=== PATIENT | male | born 1990 | race African-American/Black ===

== ENCOUNTER 2019-09-29 16:30 | Inpatient (IN) ==
[2019-09-29 17:04] LABS: URINE SOURCE CLEAN CATCH
[2019-09-29 17:10] LABS: BILIRUBIN URINE NEGATIVE (NEGATIVE); BLOOD URINE NEGATIVE (NEGATIVE); COLOR YELLOW; GLUCOSE URINE NEGATIVE (NEGATIVE); KETONE URINE NEGATIVE (NEGATIVE); LEUKOCYTES URINE NEGATIVE (NEGATIVE); NITRITE URINE NEGATIVE (NEGATIVE); PH URINE 8.5; PROTEIN URINE TRACE mg/dL (NEGATIVE); SP GRAVITY URINE 1.016; TURBIDITY URINE CLEAR (CLEAR); UROBILINOGEN URINE 3 mg/dL (NORMAL)
[2019-09-29 17:12] LABS: UR EPITHELIAL CELLS <10 /HPF (<10); URINE BACTERIA NEGATIVE /HPF; URINE RBC <10 /HPF (<10); URINE WBC <10 /HPF (<10)
--- NOTE | 2019-09-29 18:14 | Diag Imaging Result Doc PS360 ---
EXAM: KUB ABDOMEN INDICATION: abd pain TECHNIQUE: One view COMPARISON: None. FINDINGS: There are nonspecific bowel gas and stool patterns. There is mild patchy small bowel gas with slight distention. There is no obstructive bowel pattern. There is no evidence of large volume free abdominal gas. There is no evidence of organomegaly. IMPRESSION: Nonspecific abdomen. Electronically signed by Ibrahima Barry 09/29/2019 6:12 PM
[2019-09-29 19:06] LABS: BASO# 0.03 X1000 (0.0-0.2); BASO% 0.3 % (0.0-0.8); EOS# 0.03 X1000 (0.0-0.7); EOS% 0.3 % (0.0-10.0); HEMATOCRIT 43.3 % (42.0-52.0); IMM GRAN# 0.04 X1000 (0.0-0.04); IMM GRAN% 0.4 % (0.0-0.5); LYMPH# 0.52 X1000 (1.2-3.4); LYMPH% 5.3 % (20.5-51.1); MCH 29.3 PG (27-31); MCHC 34.6 g/dL (33-37); MCV 84.6 FL (81-99); MONO# 0.78 X1000 (0.11-0.59); NEUT# 8.37 X1000 (1.4-6.5); NEUT% 85.7 % (42.2-75.2); PLT 144 X1000 (130-400); RBC 5.12 XMIL (4.7-6.1); RDW 12.3 % (11.5-14.5); WBC 9.77 X1000 (4.8-10.8)
[2019-09-29 19:23] LABS: ESTIMATED GFR > 60
[2019-09-29 19:24] LABS: AGAP 16; ALB/GLOB RATIO 1.6; ALBUMIN 4.9 g/dL (3.5-5.0); ALKALINE PHOSPHATASE 53 U/L (32-122); BUN 13 mg/dL (8-22); CALCIUM 9.9 mg/dL (8.8-10.2); CHLORIDE 100 mmol/L (98-107); COSMO 275; CREATININE 1.2 mg/dL (0.7-1.2); GLUCOSE 92 mg/dL (70-104); GOT 17 U/L (10-34); GPT 17 U/L (10-44); LIPASE 6 U/L (13-60); POTASSIUM 4.2 mmol/L (3.5-5.1); SODIUM 138 mmol/L (136-145); TCO2 22 mmol/L (25-35); TOTAL BILIRUBIN 0.42 mg/dL (0.20-1.00)
[2019-09-29] MEDS ORDERED: G.I. COCKTAIL PO ONE (19:30)
--- NOTE | 2019-09-29 19:32 | PROVIDER DOCUMENTATION ---
HPI-Abdominal Pain/GI Problem - General Chief Complaint: Abdominal Pain Stated Complaint: RT SIDE PAIN ,LEG PAIN Time Seen by Provider: 09/29/19 16:41 Source: patient Allergies/Adverse Reactions: Patient Allergies Allergy/AdvReac Type Severity Reaction Status Date / Time No Known Allergies Allergy Verified 09/29/19 19:39 Home Medications: Home Medication List Medication Instructions Recorded Confirmed Last Taken Type NK [No Home Medications] 09/29/19 09/29/19 Unknown History - History of Present Illness-ABD Nature of Presenting Problems: [id number] presents to the ER with c/o epigastric and abd pain, NV, since last night. Abdominal Pain Onset Location: reports: epigastric, generalized abdomen Pain Radiation: reports: no radiation Quality of Pain: reports: aching, burning Severity in ED: reports: moderate Onset/Duration: reports: last night Exposure to sick contacts?: No Associated Symptoms: reports: nausea, vomiting Last BM: last night Dark Stools Present?: reports: none noticed Review of Systems - Adult - REVIEW OF SYSTEMS - ADULT Constitutional: reports: see HPI. denies: chills, fever Eyes: reports: no symptoms reported Ears, Nose, Mouth & Throat: reports: no symptoms reported Cardiovascular: reports: no symptoms reported Respiratory: reports: no symptoms reported. denies: chronic cough, cough, shortness of breath, wheezing Gastrointestinal: reports: see HPI, abdominal pain, nausea, vomiting Genitourinary: reports: no symptoms reported. denies: dysuria, discharge, hesitency, urgency Musculoskeletal: reports: no symptoms reported Integumentary: reports: no symptoms reported Neurological: reports: no symptoms reported Psychiatric: reports: no symptoms reported Endocrine: reports: no symptoms reported Hematologic/Lymphatic: reports: no symptoms reported Allergic/Immunologic: reports: no symptoms reported All Other Systems: Reviewed and Negative Past History - Adult - PAST MEDICAL HISTORY-ADULT Review of Records: reports: Old Records Reviewed, Nursing Assessment Review, Medications Reviewed, Social history reviewed & non-contributory. Major Childhood Illnesses: reports: denies history Cardiovascular: reports: denies history Respiratory: reports: denies history Gastrointestinal: reports: denies history Obstetrical/Gynecological: reports: denies history Genitourinary: reports: denies history Musculoskeletal: reports: denies history Neurological: reports: denies history Endocrine/Immune: reports: denies history Other Conditions: reports: denies history - IMMUNIZATION STATUS Childhood Immunizations: See Nurse Assessment Flu Vaccine: See Nurse Assessment - FAMILY HISTORY Family History: reviewed, not pertinent - SOCIAL HISTORY Smoking: cigarettes, less than 1 pack/day Provider spent 3-5 mins advising pt. on dangers of tobacco.: Discussed manners to quit use, and f/u contacts for add'l counseling. Substance Use: alcohol, marijuana Alcohol Use Frequency: occasionally Living Situation: family Physical Exam-General - PHYSICAL EXAM-ADULT Initial Vital Signs Reviewed: Yes - CONSTITUTIONAL General Appearance: alert, mild distress - EYES Eyes: PERRL/EOMI, pink conjunctivae - HEAD, EARS, NOSE, MOUTH & THROAT HENMT: moist mucous membranes, normal ENT inspection, TMs normal - NECK Neck: full range of motion, supple, normal inspection - RESPIRATORY Respiratory: lungs clear, normal breath sounds - CARDIOVASCULAR Cardiovascular: regular rate, rhythm, tachycardia - GASTROINTESTINAL (ABDOMEN) Abdominal Exam: normal bowel sounds, soft, tenderness (generalized). negative: distended, rebound - MUSCULOSKELETAL Back Exam: normal inspection, no CVA tenderness, no vertebral tenderness Extremity: normal range of motion, non-tender, normal gait - SKIN Integumentary: normal color, warm/dry - NEUROLOGIC Neurologic: grossly normal - PSYCHIATRIC Psych/Mental Status: anxious (patient will not sit still even for exam.) Progress - PLAN OF CARE/RESULTS Progress/Plan/Lab Results: Vital Signs - 8 hr 09/29/19 16:41 09/29/19 17:43 Temperature 98.8 F 97.8 F Pulse Rate 106 H 105 H Respiratory Rate 18 20 Blood Pressure 111/70 109/79 O2 Sat by Pulse Oximetry 100 100 Laboratory Results - last 24 hr 09/29/19 09/29/19 09/29/19 16:54 18:36 18:36 WBC 9.77 RBC 5.12 Hgb 15.0 Hct 43.3 MCV 84.6 MCH 29.3 MCHC 34.6 RDW Std Deviation 12.3 Plt Count 144 MPV 12.0 H Immature Gran % (Auto) 0.4 Neut % (Auto) 85.7 H Lymph % (Auto) 5.3 L Lewis % (Auto) 8.0 Eos % (Auto) 0.3 Baso % (Auto) 0.3 Immature Gran # (Auto) 0.04 Neut # (Auto) 8.37 H Lymph # (Auto) 0.52 L Lewis # (Auto) 0.78 H Eos # (Auto) 0.03 Baso # (Auto) 0.03 Sodium 138 Potassium 4.2 Chloride 100 Carbon Dioxide 22 L Anion Gap 16 BUN 13 Creatinine 1.2 Estimated GFR/1.73 m2 > 60 BUN/Creatinine Ratio 11 Glucose 92 Calculated Osmolality 275 Calcium 9.9 Total Bilirubin 0.42 AST 17 ALT 17 Alkaline Phosphatase 53 Total Protein 8.0 Albumin 4.9 Globulin 3.1 Albumin/Globulin Ratio 1.6 Lipase 6 L Urine Source CLEAN CATCH Urine Color YELLOW Urine Turbidity CLEAR Urine pH 8.5 Ur Specific [place] 1.016 Urine Protein TRACE A Ur Glucose (Stick) NEGATIVE Ur Ketones (Stick) NEGATIVE Urine Blood NEGATIVE Urine Nitrite NEGATIVE Urine Bilirubin NEGATIVE Urobilinogen Dipstick 3 A Urine Leukocytes NEGATIVE Urine WBC (Auto) <10 Urine RBC (Auto) <10 U Epithel Cells (Auto) <10 Urine Bacteria (Auto) NEGATIVE Orders Category Date Time Status NPO Diet 09/29/19 16:[address] ABD/PELVIS W/IV CONT ONLY [CT] Stat Exams 09/29/19 19:31 Ordered KUB ABDOMEN [RAD] Stat Exams 09/29/19 17:55 Completed CBC WITH DIFF [HEME] Stat Lab 09/29/19 18:36 Completed COMPREHENSIVE METABOLIC PANEL [CHEM] Stat Lab 09/29/19 18:36 Completed LIPASE [CHEM] Stat Lab 09/29/19 18:36 Completed URINALYSIS [URINALYSIS] Stat Lab 09/29/19 16:54 Completed URINE DRUG SCREEN PL Stat Lab 09/29/19 19:24 Uncollected Lido/[place] Alk/Al&mg Hydrox [G.i. Cocktail] Med 09/29/19 19:30 Once 30 ml PO NOW ONE Abd Pain/OB <20 weeks Stat Oth 09/29/19 16:47 Ordered Result Diagrams: 09/29/19 18:36 09/29/19 18:36 - XRAY 1 XRAY Study: Abdomen Impression: See EMR Report ( FINDINGS: There are nonspecific bowel gas and stool patterns. There is mild patchy small bowel gas with slight distention. There is no obstructive bowel pattern. There is no evidence of large volume free abdominal gas. There is no evidence of organomegaly. IMPRESSION: Nonspecific abdomen.) - CT/MRI 1 CT Study: Abdomen Impression: See EMR Report ( FINDINGS: The liver, gallbladder, spleen, pancreas, and adrenal glands are essentially unremarkable. There is a small cyst at the inferior aspect of the left kidney. The kidneys are unremarkable, otherwise. Urinary bladder appears normal. There is evidence of a prior appendectomy. There are fluid-filled loops of small bowel throughout the abdomen that are nonspecific. Consider ileus related to mild enteritis. No focal bowel wall thickening is appreciated. There is no evidence of bowel obstruction. The remainder of the GI tract is essentially unremarkable. There is chronic appearing spondylolysis at L5 with no significant anterolisthesis. There is no evidence of acute osseous abnormality. IMPRESSION: Fluid-filled loops of small bowel throughout the abdomen suggesting mild ileus, possibly related to enteritis. No evidence of acute pathology, otherwise.) - CONSULTS/PCP/HOSPITALIST Notification #1 *Consult/PCP/Hospitalist*: Dr Garland Time Discussed: : Reason/Comments: Illeus, NV, Abd pain Consult Disposition: Admit Departure - Departure Date of Disposition Decision: 09/29/19 Time of Disposition Decision: 21:26 DIAGNOSIS: Ileus, unspecified, Abdominal pain, acute Nausea & vomiting Qualifiers: Vomiting type: unspecified Vomiting Intractability: non-intractable Qualified Code(s): R11.2 - Nausea with vomiting, unspecified Disposition: ADMITTED INPATIENT 09 Certified Medical Emergency: Emergent Condition: Critical Additional Instructions: ED Follow Up Instructions: You have been treated by a care provider in the Emergency Department. These instructions are being provided to you so you can have an understanding of how to care for yourself upon discharge. Upon discharge from the Emergency Department, you are responsible for making arrangements for follow-up care by a physician of your choice. Take all prescribed medications as directed. Return to the Emergency Department immediately for any new or worsening symptoms. You may call the Physician Referral phone number at [phone] to obtain a list of Physicians who are taking new patients. Referrals and Follow-Ups: None,PCP [Primary Care Provider] - - Critical Care Note This patient required my direct & personal management of CC.: No Attestation - Physician/ SADE Attestation Patient care was provided by Advanced Practice Provider:: Yes Advanced Practice Provider:: Blake Scott Advanced Practice Provider documentation review:: The Mid-level provider documentation, treatment plan and medical decision making was reviewed by the physician who agrees with all treatment and medical decision making by the MLP. The physician spent face to face time with patient:: No Advanced Practice Provider documentation review:: Supervising physician onsite and consulted in the evaluation and care of this patient. The physician did not have a face to face encounter with the patient.
--- NOTE | 2019-09-29 21:06 | Diag Imaging Result Doc PS360 ---
EXAM: CT ABD/PELVIS W/IV CONT ONLY INDICATION: abd pain TECHNIQUE: This exam was performed using automated exposure control, adjustment of mA or kV according to patient size, and/or use of iterative reconstruction technique. COMPARISON: None. FINDINGS: The liver, gallbladder, spleen, pancreas, and adrenal glands are essentially unremarkable. There is a small cyst at the inferior aspect of the left kidney. The kidneys are unremarkable, otherwise. Urinary bladder appears normal. There is evidence of a prior appendectomy. There are fluid-filled loops of small bowel throughout the abdomen that are nonspecific. Consider ileus related to mild enteritis. No focal bowel wall thickening is appreciated. There is no evidence of bowel obstruction. The remainder of the GI tract is essentially unremarkable. There is chronic appearing spondylolysis at L5 with no significant anterolisthesis. There is no evidence of acute osseous abnormality. IMPRESSION: Fluid-filled loops of small bowel throughout the abdomen suggesting mild ileus, possibly related to enteritis. No evidence of acute pathology, otherwise. Electronically signed by Ibrahima Barry 09/29/2019 9:04 PM
[2019-09-29] MEDS ORDERED: OFIRMEV 1000 MG/ISOTONIC SOLN 1,000 MG/100 ML BOTTLE IV PRN (21:16)
--- NOTE | 2019-09-29 22:44 | HISTORY AND PHYSICAL ---
PRIMARY CARE PHYSICIAN: None. CHIEF COMPLAINT: Abdominal pain, nausea and vomiting x1 day. HISTORY OF PRESENTING ILLNESS: This is a 29-year-old male with a history of asthma who presented to the emergency department with 1-day history of having persistent nausea, vomiting and abdominal discomfort. The patient states that he could not keep anything down. He described his abdominal pain as sharp and at times very excruciating and subsequently had come to the emergency department. In the ED, he was evaluated. He was given antiemetics, some pain control; however, symptoms did not resolve. Due to his presenting symptoms, it was thought that he would need admission for further management. The patient had imaging done, which did show possibility of ileus and enteritis. At time of my examination, patient denied any headache, fever, chills, chest pain, shortness of breath or any weight changes but complained of abdominal pain, nausea and vomiting. PAST MEDICAL HISTORY: Includes asthma. PAST SURGICAL HISTORY: Appendectomy. ALLERGIES: No known drug allergies. CURRENT MEDICATIONS: None. SOCIAL HISTORY: Smokes about 1 to 2 cigarettes per day. Denies any history of alcohol or illicit drug use. FAMILY HISTORY: No history of coronary disease. REVIEW OF SYSTEMS: Fourteen point review of systems is as in HPI. Other systems negative. PHYSICAL EXAMINATION: GENERAL: Cooperative, friendly male. He is resting comfortably now. VITAL SIGNS: Temperature 97.8 degrees, pulse 105, respirations 20, blood pressure 109/79. HEENT: Atraumatic, normocephalic. Extraocular movements intact. PERRLA. NECK: No masses. CHEST: Clear to auscultation. CARDIOVASCULAR: Regular rate and rhythm. ABDOMEN: Soft. Positive bowel sounds. EXTREMITIES: No edema. NEUROLOGIC: He is awake, alert, oriented x3. GENITOURINARY: No bladder distention. SKIN: Warm. LABORATORIES AND STUDIES: WBC 9.77, hemoglobin 15.1, hematocrit 43.3, platelets 144,000. Sodium 138, potassium 4.2, chloride 100, CO2 22, BUN is 13, creatinine is 1.2, glucose 92. CT of the abdomen and pelvis shows mild ileus and possible enteritis. ASSESSMENT: This is a 29-year-old male with a history of asthma who presented to the emergency department for 1-day history of having persistent abdominal pain associated with nausea and vomiting. He was evaluated in the emergency department. He had imaging done, which did show possibility of ileus and enteritis and subsequently was thought that we will place him for observation for further evaluation and management. 1. Abdominal pain. 2. Mild ileus. 3. Enteritis. 4. Asthma. PLAN: 1. We will admit patient to medical floor. 2. We will keep patient n.p.o., continue with IV fluids, antiemetics, and pain control. 3. We will continue with DuoNebs p.r.n. dyspnea. 4. The patient is on DVT prophylaxis with SCD. 5. We will continue to follow, reassess and make further recommendations based on patient's clinical course. cc: Alex Garland MD
[2019-09-29] MEDS: NS 1,000 ML IV SCH (23:46)
[2019-09-29] MEDS ORDERED: NS 1,000 ML ONE (23:49)
[2019-09-30 01:49] LABS: UR AMPHETAMINES QUAL NONE DETECTED (NONE DETECT); UR BARBITUATES QUAL NONE DETECTED (NONE DETECT); UR BENZODIAZEPIN QUAL NONE DETECTED (NONE DETECT); UR CANNABINOIDS QUAL PRESUMPTIVE POSITIVE (NONE DETECT); UR COCAINE QUAL NONE DETECTED (NONE DETECT); UR METHADONE QUAL NONE DETECTED (NONE DETECT); UR OPIATES QUAL NONE DETECTED (NONE DETECT); UR OXYCODONE QUAL NONE DETECTED (NONE DETECT); UR PCP QUAL NONE DETECTED (NONE DETECT)
[2019-09-30] MEDS: TYLENOL PO PRN ×3 (04:45→16:59)
[2019-09-30 07:24] LABS: BASO# 0.01 X1000 (0.0-0.2); BASO% 0.2 % (0.0-0.8); HEMATOCRIT 39.7 % (42.0-52.0); HEMOGLOBIN 13.4 g/dL (14.0-18.0); LYMPH# 0.47 X1000 (1.2-3.4); LYMPH% 7.1 % (20.5-51.1); MCH 28.9 PG (27-31); MCHC 33.8 g/dL (33-37); MCV 85.7 FL (81-99); MONO# 0.93 X1000 (0.11-0.59); MONO% 14.1 % (1.7-9.3); MPV 12.1 FL (7.4-10.4); NEUT% 78.6 % (42.2-75.2); PLT 151 X1000 (130-400); RBC 4.63 XMIL (4.7-6.1); RDW 12.4 % (11.5-14.5); WBC 6.61 X1000 (4.8-10.8)
[2019-09-30 08:29] LABS: AGAP 10; BUN 14 mg/dL (8-22); CALCIUM 9.3 mg/dL (8.8-10.2); CHLORIDE 104 mmol/L (98-107); COSMO 280; CREATININE 1.1 mg/dL (0.7-1.2); ESTIMATED GFR > 60; GLUCOSE 100 mg/dL (70-104); POTASSIUM 3.9 mmol/L (3.5-5.1); SODIUM 140 mmol/L (136-145); TCO2 26 mmol/L (25-35)
--- NOTE | 2019-09-30 08:42 | PROGRESS NOTE ---
DATE: 09/30/2019 SUBJECTIVE: Patient reports still feeling nauseated. Mild epigastric pain. OBJECTIVE: Vital Signs: Temperature 99.5 degrees, heart rate 76, respiratory rate 19, blood pressure 129/75, O2 saturation 100% on room air. General: This is a 29-year-old male, lying in bed, in no acute distress. Cardiovascular: S1, S2 heard. No murmurs, gallops, or rubs. Regular rate and rhythm. Respiratory: Clear bilaterally to auscultation. No work of breathing or using accessory muscles. Abdomen: Soft. Mild tenderness to palpation in the epigastric area but no signs of peritoneal irritation. Bowel sounds present. No organomegaly. Extremities: No clubbing, cyanosis, or edema. Peripheral pulses present in both legs. Neurological: Patient alert and oriented x3. Moves 4 extremities. LABORATORY DATA REVIEW: Reviewed and UDS positive for cannabinoids. ASSESSMENT: 1. Mild ileus or enteritis. 2. Abdominal pain. 3. Marijuana abuse. PLAN: At this point, labs are okay on this patient. I do not know if this enteritis or mild ileus is related to marijuana abuse. I thing his intractable nausea and vomiting is related to this drug. In any case, we will continue at this point with IV fluids. We will continue with Zofran. The patient does not want to eat today so we are going to keep him n.p.o. any if tomorrow he is feeling fine, we can start clear liquids on him. We are going to check an abdominal x-ray tomorrow and we will see how this patient does. cc: Jarett Griffith MD
[2019-09-30] MEDS: ULTRAM PO PRN ×2 (08:57→16:58)
[2019-09-30] MEDS: NS 1,000 ML IV SCH ×2 (08:57→17:42)
[2019-09-30] MEDS: PROTONIX IV SCH (08:58)
[2019-09-30] MEDS: SODIUM CHLORIDE 0.9% INJ SCH (08:58)
[2019-09-30] MEDS: ZOFRAN IV PRN (17:42)
[2019-10-01] MEDS: ULTRAM PO PRN ×3 (01:10→15:55)
[2019-10-01] MEDS: ZOFRAN IV PRN ×5 (01:10→20:14)
[2019-10-01] MEDS: PROTONIX IV SCH (07:39)
[2019-10-01] MEDS: SODIUM CHLORIDE 0.9% INJ SCH (07:39)
[2019-10-01 07:51] LABS: BASO# 0.02 X1000 (0.0-0.2); BASO% 0.6 % (0.0-0.8); EOS# 0.01 X1000 (0.0-0.7); EOS% 0.3 % (0.0-10.0); HEMATOCRIT 43.8 % (42.0-52.0); HEMOGLOBIN 14.6 g/dL (14.0-18.0); LYMPH# 0.79 X1000 (1.2-3.4); LYMPH% 23.4 % (20.5-51.1); MCHC 33.3 g/dL (33-37); MCV 86.9 FL (81-99); MONO# 0.71 X1000 (0.11-0.59); MONO% 21.1 % (1.7-9.3); MPV 11.7 FL (7.4-10.4); NEUT# 1.84 X1000 (1.4-6.5); NEUT% 54.6 % (42.2-75.2); PLT 133 X1000 (130-400); RBC 5.04 XMIL (4.7-6.1); RDW 12.8 % (11.5-14.5); WBC 3.37 X1000 (4.8-10.8)
[2019-10-01 08:22] LABS: AGAP 14; BUN 14 mg/dL (8-22); CALCIUM 9.4 mg/dL (8.8-10.2); CHLORIDE 103 mmol/L (98-107); COSMO 282; CREATININE 1.1 mg/dL (0.7-1.2); ESTIMATED GFR > 60; GLUCOSE 78 mg/dL (70-104); POTASSIUM 4.1 mmol/L (3.5-5.1); SODIUM 142 mmol/L (136-145); TCO2 25 mmol/L (25-35)
--- NOTE | 2019-10-01 08:24 | Diag Imaging Result Doc PS360 ---
EXAM: ABDOMEN FLAT/UPRIGHT INDICATION: pain TECHNIQUE: 2 views COMPARISON: 09/29/2019 FINDINGS: There is moderate gaseous distention of the sigmoid colon. There is no obstructive bowel pattern. There is no evidence of large volume free abdominal gas. The abdomen is essentially stable, otherwise. IMPRESSION: Nonspecific abdomen. Electronically signed by Ibrahima Barry 10/01/2019 8:22 AM
--- NOTE | 2019-10-01 08:37 | PROGRESS NOTE ---
DATE: 10/01/2019 SUBJECTIVE: Patient reports feeling okay but not having good appetite. He ate only Jell-O from the clear liquid diet. Denies any other complaints. OBJECTIVE: Vital Signs: Temperature 98.2 degrees, heart rate 69, respiratory rate 20, blood pressure 133/74, O2 saturation 100% on room air. General Examination: This is a 29-year-old, -[place] male, lying in bed, in no acute distress. Cardiovascular Examination: S1 and S2 heard. No murmurs, gallops, or rubs. Regular rate and rhythm. Respiratory Examination: Clear bilaterally to auscultation. No work of breathing or using accessory muscles. Abdomen: Soft. A little bit tender to palpation in the epigastric area but there are no signs of peritoneal irritation. Bowel sounds present. No organomegaly. Extremities: No clubbing, cyanosis, or edema. Peripheral pulses present in both legs. Neurological Examination: The patient is alert and oriented x3. Moves 4 extremities. Laboratory Data: Pending at the time of my dictation. ASSESSMENT: 1. Mild ileus or enteritis. 2. Abdominal pain. 3. Marijuana abuse. PLAN: At this point, the patient is not vomiting anymore but is having a poor appetite. At this point, we will continue with IV fluids and clear liquid diet. We will advance his diet tomorrow if he tolerates it or eats at least 50% of his meal. We will see what the abdominal x-ray shows today and we will go from there. cc: Jarett Griffith MD
[2019-10-01 11:33] LABS: BANDS 4 % (0-1); LYMPHS 30 % (21-51); MONO 8 % (1-9); SEGS 58 % (42-75)
[2019-10-02] MEDS: ZOFRAN IV PRN (06:59)
[2019-10-02 07:21] LABS: BASO# 0.02 X1000 (0.0-0.2); BASO% 0.4 % (0.0-0.8); EOS# 0.02 X1000 (0.0-0.7); EOS% 0.4 % (0.0-10.0); HEMATOCRIT 42.6 % (42.0-52.0); HEMOGLOBIN 14.4 g/dL (14.0-18.0); LYMPH# 0.76 X1000 (1.2-3.4); LYMPH% 16.5 % (20.5-51.1); MCH 29.1 PG (27-31); MCHC 33.8 g/dL (33-37); MCV 86.2 FL (81-99); MONO# 0.49 X1000 (0.11-0.59); MONO% 10.6 % (1.7-9.3); MPV 11.5 FL (7.4-10.4); NEUT# 3.33 X1000 (1.4-6.5); NEUT% 72.1 % (42.2-75.2); PLT 145 X1000 (130-400); RBC 4.94 XMIL (4.7-6.1); RDW 12.6 % (11.5-14.5); WBC 4.62 X1000 (4.8-10.8)
[2019-10-02 07:42] VITALS: BP 135/82
[2019-10-02 07:54] LABS: AGAP 14; BUN 13 mg/dL (8-22); CHLORIDE 102 mmol/L (98-107); COSMO 279; CREATININE 1.1 mg/dL (0.7-1.2); ESTIMATED GFR > 60; GLUCOSE 83 mg/dL (70-104); POTASSIUM 4.1 mmol/L (3.5-5.1); SODIUM 140 mmol/L (136-145); TCO2 24 mmol/L (25-35)
[2019-10-02] MEDS: ULTRAM PO PRN (07:58)
[2019-10-02] MEDS: SODIUM CHLORIDE 0.9% INJ SCH (08:00)
[2019-10-02] MEDS: PROTONIX IV SCH (08:00)
--- NOTE | 2019-10-04 13:28 | DISCHARGE SUMMARY ---
ADMISSION DATE: 09/29/2019 DISCHARGE DATE: 10/02/2019 DISCHARGE DIAGNOSES: 1. Abdominal pain, resolved. 2. Mild ileus and enteritis, resolved. PROCEDURES: 1. CT of abdomen and pelvis showed fluid-filled loops of small bowel throughout the abdomen suggesting mild ileus, possibly related to enteritis but no evidence of acute pathology otherwise. 2. Abdominal x-ray showed nonspecific abdomen. HOSPITAL COURSE: This is a 29-year-old male who presented to the emergency department complaining with 1-day history of persistent nausea and vomiting, abdominal discomfort. CT of the abdomen showed results as above. So this patient was admitted to the hospital for evaluation and treatment. Patient was placed on IV fluids and antiemetics and patient started getting better. We will provided clear liquid diet and then we switched to a regular diet and he was tolerating diet very well. He had a bowel movement so patient is going to be discharged in stable condition. DISCHARGE PHYSICAL EXAMINATION: Vital signs: Temperature 98.9 degrees, heart rate 64, respiratory rate 16, blood pressure 135/82, O2 saturation 100% on room air. General: This is a 29-year-old male, lying in bed, in no acute distress. Cardiovascular: S1, S2 heard. No murmurs, gallops, or rubs. Regular rate and rhythm. Respiratory: Clear bilaterally to auscultation. No work of breathing or using accessory muscles. Abdomen: Soft, nontender to palpation. Bowel sounds present. No organomegaly. Extremities: No clubbing, cyanosis, or edema. Peripheral pulses present in both legs. Neurological: The patient is alert and oriented x3. Moves 4 extremities. DISCHARGE DISPOSITION: Home to self-care. LIST OF MEDICATIONS: None. FOLLOWUP: Not required. cc: MD KASSY Lazo
== END 2019-10-02 15:04 | disposition home or self-care (01) | DRG 392 ==
LOC: ED 16:30 → SUATTDRO 22:01 → 4N 22:01
PROVIDERS: ATTEND Internal Medicine